=== PATIENT | female | born 1960 | race Caucasian/White ===

== ENCOUNTER 2023-02-06 12:22 | Day surgery (SDC) | payer OTHER ==
[~2023-02-06] VITALS: Ht 152.4 cm; Wt 60.3 kg
[2023-02-06] MEDS ORDERED: LIDOCAINE 2% 100 MG/5 ML UJET TP ONE (13:22)
[2023-02-06] MEDS ORDERED: fentaNYL citrate 0.05 MG/ML VIAL ONE (13:22)
== END 2023-02-06 14:55 | disposition home or self-care (01) ==
LOC: MOR 12:22 → MMU 12:23 → MOR 14:55
PROVIDERS: ATTEND Internal Medicine Gastroenterology
DX: R19.5 Other fecal abnormalities (principal); K57.30 Diverticulosis of large intestine without perforation or abscess without bleeding; K21.9 Gastro-esophageal reflux disease without esophagitis; E78.5 Hyperlipidemia, unspecified; E11.9 Type 2 diabetes mellitus without complications; Z91.040 Latex allergy status; Z79.84 Long term (current) use of oral hypoglycemic drugs; Z79.899 Other long term (current) drug therapy
CPT/HCPCS: 45378; 82948; J3010